=== PATIENT | female | born 1995 | race Caucasian/White ===

== ENCOUNTER 2017-10-16 08:49 | Emergency (ER) | payer OTHER ==
[2017-10-16 09:03] VITALS: BP 114/76
--- NOTE | 2017-10-16 11:15 | UC ---
Skin Complaint HPI - HPI Summary HPI Summary: 10/12/17 DEVELOPED SMALL TWO ROUND ITCHY AREA ON BILATERAL FOREARMS. NO FEVER. NO TICK BITES. NO EXPOSURE TO NEW MEDICATIONS, DETERGENTS, OR FOODS. DAUGHTER DEVELPING SAME ON ABDOMEN. - History of Current Complaint Chief Complaint: UCSkin Time Seen by Provider: 10/16/17 09:55 Stated Complaint: RASH Hx Obtained From: Patient Hx Last Menstrual Period: 10/14/17 Onset/Duration: Gradual Onset, Lasting Days Pain Intensity: 0 Pain Scale Used: 0-10 Numeric Location: Discrete - BILATERAL FOREARMS Character: Pruritus Aggravating Factor(s): Nothing Alleviating Factor(s): OTC Creams/Salves - OTC ANTIFUNGAL Associated Signs & Symptoms: Positive: Rash. Negative: Fever, Chills, Cough, Syncope, Drainage, Bruising, Joint Swelling Related History: Possible Reaction to: Environmental Exposure - Allergy/Home Medications Allergies/Adverse Reactions: Allergies Allergy/AdvReac Type Severity Reaction Status Date / Time No Known Allergies Allergy Verified 10/16/17 09:03 Home Medications: Home Medications NK [No Home Medications Reported] 10/16/17 [History Confirmed 10/16/17] Review of Systems Constitutional: Negative Skin: Rash Eyes: Negative ENT: Negative Respiratory: Negative Cardiovascular: Negative Gastrointestinal: Negative Genitourinary: Negative Motor: Negative Neurovascular: Negative Musculoskeletal: Negative Neurological: Negative Psychological: Negative Is Patient Immunocompromised?: No All Other Systems Reviewed And Are Negative: Yes PMH/Surg Hx/FS Hx/Imm Hx Previously Healthy: Yes - Surgical History Surgical History: None - Family History Known Family History: Negative: Blood Disorder - Social History Occupation: Employed Full-time Lives: With Family Alcohol Use: None Substance Use Type: None Smoking Status (MU): Heavy Every Day Tobacco Smoker Type: Cigarettes Amount Used/How Often: 1/2ppd Have You Smoked in the Last Year: No Cessation Counseling: Patient Advised to Stop - Immunization History Most Recent Influenza Vaccination: Not UTd Most Recent Tetanus Shot: unkown Most Recent Pneumonia Vaccination: na Physical Exam Triage Information Reviewed: Yes Appearance: Well-Appearing, No Pain Distress, Well-Nourished Vital Signs: Initial Vital Signs Temp 97.0 F 10/16/17 09:00 Pulse 85 10/16/17 09:00 Resp 16 10/16/17 09:00 BP 114/76 10/16/17 09:00 Pulse Ox 98 10/16/17 09:00 Vital Signs Reviewed: Yes Eye Exam: Normal ENT Exam: Normal ENT: Positive: Normal ENT inspection Dental Exam: Normal Neck exam: Normal Neck: Positive: Supple, Nontender, No Lymphadenopathy Respiratory Exam: Normal Respiratory: Positive: Chest non-tender, Lungs clear, Normal breath sounds, No respiratory distress, No accessory muscle use Cardiovascular Exam: Normal Cardiovascular: Positive: RRR, No Murmur, Pulses Normal, Brisk Capillary Refill Abdominal Exam: Normal Musculoskeletal Exam: Normal Musculoskeletal: Positive: Strength Intact, ROM Intact Neurological Exam: Normal Psychological Exam: Normal Skin: Positive: rashes - TWO 0.5CM X 0.5CM MACULAR IRREGULAR CIRCULAR PLAQUES WITH EXCORIATED CENTER. ON BILATERAL FOREARMS Course/Dx - Differential Diagnoses - Skin Complaint Differential Diagnoses: Contact Dermatitis, Drug Rash, Tinea, Urticaria, Viral Exanthem - Diagnoses Provider Diagnoses: TINEA CORPORIS BILATERAL FOREARMS Discharge - Discharge Plan Condition: Stable Disposition: HOME Patient Education Materials: Tinea Corporis (ED) Referrals: [facility] [Outside] No Primary Care Phys,NOPCP [Primary Care Provider] - Additional Instructions: USE OVER THE COUNTER ANTIFUNGAL CREAM TWICE DAILY. ADD OVER THE COUNTER STEROID CREAM (HYDROCORTIZONE) ONCE DAILY. Images Front/Back of Body, Lg (Treasure): 1 - 0.5CM X 0.5CM MACULAR IRREGULAR CIRCULAR PLAQUE WITH EXCORIATED CENTER. 2 - 0.5CM X 0.5CM MACULAR IRREGULAR CIRCULAR PLAQUE WITH EXCORIATED CENTER.
== END 2017-10-16 10:12 | disposition home or self-care (01) ==
LOC: UCEAST 08:49
DX: B35.4 Tinea corporis (principal); F17.210 Nicotine dependence, cigarettes, uncomplicated
CPT/HCPCS: 99211; G0463

== ENCOUNTER 2019-07-13 10:38 | Inpatient (IN) | payer OTHER ==
[2019-07-13] MEDS ORDERED: Glycerin ADULT SUPP PR PRN (11:18)
[2019-07-13] MEDS ORDERED: Dibucaine 1% 28.35 GM TUBE PR PRN (11:18)
[2019-07-13] MEDS ORDERED: Witch Hazel PAD* JAR TOPICAL PRN (11:18)
--- NOTE | 2019-07-13 11:26 | HP ---
General Information - Reason for Visit IUP at 41-7 pushing on arrival, delivery imminent - General Information Maternal Age: 24 Grav: 2 Para: 1 SAB: 0 IEA: 0 Estimated Due Date: 07/05/19 Determined By: Early Ultrasound Gestational Age in Weeks/Days: 41-7 Maternal Blood Type and Rh: O Positive - Results this Serology/RPR Result: Non-Reactive Rubella Result: Immune HBsAg Result: Negative HIV Result: Negative GBS Culture Result: Negative Past Medical History Delivery History: Hx Complicated Vaginal Delivery Delivery History Comment: 07/2015 VAVD for maternal exhaustion s/p 3 hours of pushing. 7lbs 11oz female. [place] [facility] [place] Winston Pertinent Past Medical History: See Records Past Medical History Comment: H/O Depression/Anxiety. No current medication mgmt Pertinent Past Surgical History: None Pertinent Family History: See Records Family History Comment: PGM: , bone cancer PGF: , lung cancer - Antepartal Records Antepartal Records: Reviewed, Complicated by: - Partial Previa, resolved 05/09/19 Review of Systems Constitutional: Uncomfortable CV Complaint: No Respiratory: Shortness of Breath: No Gastrointestinal: No Nausea/Vomiting, Normal Bowel Movement Genitourinary: Leaking Fluid - clear, No Dysuria, No Bleeding Musculoskeletal: Contractions, Pressure Neurological: No Headache, No Visual Changes Movement: Normal Exam Allergies/Adverse Reactions: Allergies No Known Allergies Allergy (Verified 07/13/19 05:28) Unable to obtain as pt actively pushing - Measurements Height: 5 ft 5.5 in Weight: 202 lb Weight in lbs: 202.945761 Body Mass Index (BMI): 33.0 Pre- Weight: 190 lb 0.001 oz Weight Gained This : 11.999 lbs and 0.015 ozs - Exam Breast: Breast Exam Deferred CVA: No CVA Tenderness Extremities: No Edema Heart: Normal Rhythm/Heart Sounds HEENT: No Significant Findings Lungs: Clear Bilaterally Rectal: Rectal Exam Deferred Reflexes: DTR 2+ Thyroid: No Thyromegaly - Abdominal Exam Abdomen Exam: Non-Tender - Ultrasound/Biophysical Profile Ultrasound Status: Not Done Targeted Exam Findings Estimated Weight: 7.5-8lbs by julian Cervical Exam: Complete Effacement: Complete Station: +3 Presenting Part: Vertex Membrane Status: SROM Amniotic Fluid Evaluation: Clear Sterile Speculum Exam: Not done Bleeding/Discharge: None EFM Findings - External Monitor Findings Baseline Heart Rate: 115 Contractions: Regular, Strong Contraction Frequency: q 2 min Assessment/Plan - Assessment IUP at 41-1/7 in second stage, delivery imminent Doubt metabolic acidemia - Obstetrical Risk Factors Obstetrical Risk Factors: Post-Dates - Plan Plan: Admit - Anticipate Vaginal Delivery - Date/Time of Admission Date of Admission: 07/13/19 Time of Admission: 10:40
--- NOTE | 2019-07-13 11:34 | PROCNOTE ---
[facility] OB: Delivery Note - Delivery A Date of : 07/13/19 Time of : 10:44 [place] Sex: Female Weight at : 7 lb 14 oz Score 1 Minute: 8 Score 5 Minutes: 9 Gestational Age in Weeks and Days at Delivery: 41 Weeks and 1 Days Delivery Method: Spontaneous Vaginal Labor: Spontaneous Did Patient attempt ?: N/A, No Previous Amniotic Fluid: Clear Estimated Blood Loss: 300 Anesthesia/Analgesia: None Delivered By: Van Connor - Nursery Level of Nursery: Regular/Bedside - Perineum Perineal Injury: 2nd Degree - repaired wtih 3-0 Rapide under local infiltration 1% lidocaine. Pt tolerated well Perineal Repair: By Delivering Practioner - Events Delivery Events of Note: Precipitous Delivery - Additional Delivery Notes Additional Delivery Notes: Pt admitted in labor, pushing. Length of active phase 1 hour, 19 min. Pushed x 19 min. liveborn female. Slow, controlled delivery of head. OA to [place]. Shoulders followed easily. initially stunned but responded well to tactile stimulation. HR> 100bpm. Apgars 8/9. Delivered to maternal abdomen. Cord clamped x 2 and cut by FOB when pulsations ceased. Spontaneous delivery intact placenta. Membranes complete. Fundus firm to massage and remained firm. Repair as above. EBL 300mL. At time of note mother and infant in stable condition.
[2019-07-13] MEDS ORDERED: Lactated Ringers 1000 ML Bag* 1,000 ML IV SCH (12:00)
[2019-07-13] MEDS ORDERED: Simethicone TAB* 80 MG TAB.CHEW PO SCH (12:30)
[2019-07-13] MEDS: Ibuprofen TAB* 600 MG PO SCH ×2 (12:55→18:52)
[2019-07-13] MEDS: Docusate CAP* 100 MG PO SCH ×2 (12:55→20:01)
[2019-07-13] MEDS ORDERED: Lidocaine 1% INJ* 10 MG/ML 30 ML SDV ONE (14:17)
[2019-07-13] MEDS: Acetaminophen TAB* 325 MG PO PRN ×2 (16:54→21:54)
[2019-07-14] MEDS: Ibuprofen TAB* 600 MG PO SCH ×5 (00:45→22:38)
[2019-07-14] MEDS: Acetaminophen TAB* 325 MG PO PRN (05:44)
[2019-07-14 06:26] LABS: ABS Basophils 0.1 10^3/ul (0-0.2); ABS Eosinophils 0.1 10^3/ul (0-0.6); ABS Lymphocytes 2.1 10^3/ul (1.0-4.8); ABS Neutrophils 10.9 10^3/ul (1.5-7.7); Hematocrit 32 % (35-47); Hemoglobin 10.6 g/dL (12.0-16.0); Lymphocyte % 14.9 %; Mean Corpuscular HGB Conc 33 g/dL (31-36); Mean Corpuscular Hemoglobin 27 pg (27-31); Mean Corpuscular Volume 82 fL (80-97); Mean Platelet Volume 9.2 fL (7.4-10.4); Platelet Count 166 10^3/uL (150-450); Red Blood Count 3.87 10^6 /uL (3.70-4.87); Red Cell Distribution Width 15 % (10-15); White Blood Count 14.2 10^3/uL (3.5-10.8)
[2019-07-14] MEDS: Docusate CAP* 100 MG PO SCH ×3 (08:30→20:28)
[2019-07-14] MEDS ORDERED: Ferrous Gluconate TAB* 324 MG TAB PO SCH (09:00)
[2019-07-14 19:38] VITALS: BP 114/60
[2019-07-15] MEDS: Ibuprofen TAB* 600 MG PO SCH (04:35)
[2019-07-15] MEDS: Docusate CAP* 100 MG PO SCH (09:00)
== END 2019-07-15 11:40 | disposition home or self-care (01) | DRG 560 ==
LOC: MCHOBOUT 10:38 → MCHOB 10:41
PROVIDERS: ADMIT Midwife; ATTEND Midwife
PROC: 10E0XZZ Delivery of Products of Conception, External Approach (ICD-10-PCS; principal; 2019-07-13)
PROC: 0KQM0ZZ Repair Perineum Muscle, Open Approach (ICD-10-PCS; 2019-07-13)
DX: O48.0 Post-term pregnancy (principal); Z37.0 Single live birth; Z3A.41 41 weeks gestation of pregnancy; O70.1 Second degree perineal laceration during delivery; O62.3 Precipitate labor; O77.0 Labor and delivery complicated by meconium in amniotic fluid
CPT/HCPCS: 36415; 85025; A9270-GY

== ENCOUNTER 2021-05-29 00:59 | Inpatient (IN) ==
[2021-05-29] MEDS ORDERED: Penicillin G Potassium IV 5,000,000 UNITS in NS 0.9% 100 ml BAG 100 ML IVPB ONE (02:18)
[2021-05-29] MEDS ORDERED: Lactated Ringers 1000 ml BAG 1,000 ML IV ONE (02:19)
[2021-05-29 02:31] LABS: ABS Basophils 0.1 10^3/ul (0-0.2); ABS Eosinophils 0.1 10^3/ul (0-0.6); ABS Lymphocytes 1.9 10^3/ul (1.0-4.8); ABS Monocytes 0.9 10^3/ul (0-0.8); ABS Neutrophils 10.2 10^3/ul (1.5-7.7); Eosinophil % 0.8 %; Hematocrit 35 % (35-47); Hemoglobin 12.2 g/dL (12.0-16.0); Lymphocyte % 14.1 %; Mean Corpuscular HGB Conc 35 g/dL (31-36); Mean Corpuscular Hemoglobin 30 pg (27-31); Mean Corpuscular Volume 86 fL (80-97); Mean Platelet Volume 10.1 fL (7.4-10.4); Platelet Count 152 10^3/uL (150-450); Red Blood Count 4.09 10^6 /uL (3.70-4.87); Red Cell Distribution Width 15 % (10-15); White Blood Count 13.3 10^3/uL (3.5-10.8)
[2021-05-29 02:42] LABS: Urine Benzodiazepine Screen None Detected (None Detect); Urine Cannabinoids Screen None Detected (None Detect); Urine Opiates Screen None Detected (None Detect)
[2021-05-29] MEDS: Penicillin G Potassium IV 3,000,000 UNITS in NS 0.9% 100 ml BAG 100 ML IVPB SCH ×4 (06:30→19:00)
[2021-05-29] MEDS ORDERED: OBEPIDURAL 250 ML EPIDURAL ONE (12:04)
[2021-05-29] MEDS: Lactated Ringers 1000 ml BAG 1,000 ML IV SCH ×2 (12:19→15:48)
[2021-05-29] MEDS ORDERED: Calcium Carb (TUMS) 500 mg CHEW TAB PO ONE (12:36)
[2021-05-29] MEDS ORDERED: Sodium Citrate/Citric Acid LIQ 15 ML UDC PO PRN (12:40)
[2021-05-29] MEDS ORDERED: Phenylephrine 40 mcg/mL 10mL (400mcg) SYRINGE IV PUSH PRN (12:40)
[2021-05-29] MEDS ORDERED: OBEPIDURAL 250 ML EPIDURAL SCH (13:00)
[2021-05-29] MEDS ORDERED: Oxytocin in LR 20 UNITS/1,000 ML BAG IVPB ONE (13:34)
[2021-05-29] MEDS ORDERED: Oxytocin in LR 20 UNITS/1,000 ML BAG IVPB SCH ×2 (14:00→19:00)
[2021-05-29 14:17] LABS: Urine Bacteria Absent (Absent); Urine Red Blood Cell Absent (Absent); Urine White Blood Cell Trace(0-5/hpf) (Absent)
[2021-05-29 15:04] LABS: Urine Squamous Epithelial Cell Present (Absent)
[2021-05-29 15:05] LABS: Urine Appearance Clear; Urine Bilirubin Negative (Negative); Urine Blood Negative (Negative); Urine Color Straw; Urine Glucose Negative (Negative); Urine Ketones Trace (Negative); Urine Nitrite Negative (Negative); Urine Protein Negative (Negative); Urine Specific Gravity 1.009 (1.002-1.030); Urine Urobilinogen Negative (Negative)
[2021-05-29] MEDS ORDERED: Dibucaine 1% OINT 28.35 GM TUBE PR PRN (18:28)
[2021-05-29] MEDS ORDERED: Witch Hazel PAD JAR TOPICAL PRN (18:28)
[2021-05-29] MEDS ORDERED: Glycerin ADULT 2.4 gm SUPP PR PRN (18:28)
[2021-05-30 06:45] LABS: ABS Eosinophils 0.1 10^3/ul (0-0.6); ABS Lymphocytes 1.9 10^3/ul (1.0-4.8); ABS Neutrophils 9.2 10^3/ul (1.5-7.7); Eosinophil % 1.2 %; Hematocrit 34 % (35-47); Hemoglobin 11.5 g/dL (12.0-16.0); Lymphocyte % 15.1 %; Mean Corpuscular HGB Conc 34 g/dL (31-36); Mean Corpuscular Hemoglobin 30 pg (27-31); Mean Corpuscular Volume 88 fL (80-97); Mean Platelet Volume 10.8 fL (7.4-10.4); Platelet Count 137 10^3/uL (150-450); Red Blood Count 3.86 10^6 /uL (3.70-4.87); Red Cell Distribution Width 15 % (10-15); White Blood Count 12.3 10^3/uL (3.5-10.8)
[2021-05-30 08:18] VITALS: BP 101/67
== END 2021-05-30 18:34 | disposition home or self-care (01) | DRG 560 ==
LOC: MCHOBOUT 00:59 → MCHOB 01:48
PROVIDERS: ADMIT Midwife; ATTEND Midwife

== ENCOUNTER 2024-06-23 21:40 | Inpatient (IN) ==
[2024-06-23] MEDS ORDERED: Lidocaine 1% VIAL 10 MG/ML 30 ML VIAL INJ PRN (22:21)
[2024-06-23 23:27] LABS: Urine Benzodiazepine Screen None Detected (None Detect); Urine Cannabinoids Screen None Detected (None Detect); Urine Opiates Screen None Detected (None Detect)
[2024-06-23] MEDS: Lactated Ringers 1000 ml BAG 1,000 ML IV ONE (23:30)
[2024-06-23] MEDS ORDERED: Oxytocin 10 UNITS/ML 1 ML VIAL ONE (23:34)
[2024-06-23] MEDS ORDERED: Morphine PF AMP (0.5MG/ML) 5 MG/10 ML AMP ONE (23:34)
[2024-06-23] MEDS ORDERED: Metoclopramide 5 MG/ML VIAL (10 mg) ONE (23:34)
[2024-06-23] MEDS ORDERED: Ondansetron 4 mg VIAL 2 MG/ML 2 ml VIAL ONE (23:34)
[2024-06-24] MEDS ORDERED: Phenylephrine 40 mcg/mL 10mL (400mcg) SYRINGE ONE (00:28)
[2024-06-24] MEDS ORDERED: Ondansetron 4 mg VIAL 2 MG/ML 2 ml VIAL IV PRN (00:30)
[2024-06-24] MEDS ORDERED: Naloxone 0.4 mg VIAL 0.4 mg/ml 1 ml VIAL IV PUSH PRN (00:30)
[2024-06-24] MEDS ORDERED: Metoclopramide 5 MG/ML VIAL (10 mg) IV PRN (00:30)
[2024-06-24] MEDS ORDERED: Oxytocin 10 UNITS/ML 1 ML VIAL ONE (00:43)
[2024-06-24 00:44] LABS: Hematocrit 32.3 % (35-45); Hemoglobin 10.5 g/dL (11.5-14.3); Mean Corpuscular Hemoglobin 24.7 pg (27-33); Mean Corpuscular Hgb Conc 32.6 g/dL (31-36); Mean Corpuscular Volume 75.9 fL (80-97); Mean Platelet Volume 9.7 fL (7.5-11.2); Platelet Count 164 10^3/uL (150-450); Red Blood Count 4.26 10^6/uL (3.63-4.92); Red Cell Distribution Width 15.5 % (12-17); White Blood Count 8.2 10^3/uL (3.8-11.8)
[2024-06-24] MEDS ORDERED: Witch Hazel PAD JAR TOPICAL PRN (00:54)
[2024-06-24] MEDS ORDERED: Glycerin ADULT 2.4 gm SUPP PR PRN (00:54)
[2024-06-24] MEDS ORDERED: Dibucaine 1% OINT 28.35 GM TUBE PR PRN (00:54)
[2024-06-24 00:56] LABS: Microcytosis 1+; Polychromasia 1+
[2024-06-24 00:59] LABS: ABS Eosinophils 0.3 10^3/ul (0.0-0.5); ABS Lymphocytes 1.2 10^3/ul (1.0-4.8); ABS Monocytes 0.7 10^3/ul (0.0-0.9)
[2024-06-24] MEDS ORDERED: Lactated Ringers 1000 ml BAG 1,000 ML IV SCH (01:00)
[2024-06-24 01:35] LABS: Urine Appearance Clear; Urine Bilirubin Negative (Negative); Urine Blood Negative (Negative); Urine Color Colorless; Urine Glucose Negative (Negative); Urine Ketones 1+ (Negative); Urine Nitrite Negative (Negative); Urine Protein Negative (Negative); Urine Specific Gravity 1.002 (1.002-1.030); Urine Urobilinogen Negative (Negative); Urine pH 6.5 (5.0-8.0)
[2024-06-24] MEDS: Acetaminophen IV 1 GM/100ML 1,000 MG/100 ML BAG IV PRN (01:40)
[2024-06-24] MEDS: ceFOXitin 2 GM IVPREMIX 2 GM/50 ML BAG IVPB ONE (01:41)
[2024-06-24] MEDS: Sodium Citrate/Citric Acid LIQ 15 ML UDC PO ONE (01:41)
[2024-06-24] MEDS: Oxytocin in LR 20,000 MILLI.UNIT/1,000 ML BAG IV SCH (04:00)
[2024-06-25 07:00] LABS: ABS Eosinophils 0.1 10^3/uL (0.0-0.5); ABS Monocytes 0.6 10^3/uL (0.0-0.9); ABS Neutrophils 6.5 10^3/uL (1.5-7.6); Eosinophil % 1.3 %; Hematocrit 29.7 % (35-45); Hemoglobin 10.1 g/dL (11.5-14.3); Lymphocyte % 12.4 %; Mean Corpuscular Hemoglobin 25.9 pg (27-33); Mean Corpuscular Hgb Conc 33.9 g/dL (31-36); Mean Corpuscular Volume 76.5 fL (80-97); Mean Platelet Volume 9.4 fL (7.5-11.2); Platelet Count 136 10^3/uL (150-450); Red Blood Count 3.88 10^6/uL (3.63-4.92); Red Cell Distribution Width 15.4 % (12-17); White Blood Count 8.3 10^3/uL (3.8-11.8)
[2024-06-26 08:43] VITALS: BP 123/60
== END 2024-06-26 15:38 | disposition home or self-care (01) | DRG 540 ==
LOC: MCHOBOUT 21:40 → MCHOB 22:21
PROVIDERS: ADMIT Midwife; ATTEND Obstetrics & Gynecology